=== PATIENT | male | born 1990 | race Caucasian/White ===

== ENCOUNTER 2025-02-11 08:04 | Emergency (ER) | payer OTHER ==
[~2025-02-11] VITALS: Ht 185.4 cm; Wt 133.0 kg
[2025-02-11] MEDS ORDERED: BRIXADI128 MG/0.3 SUB-Q (08:16)
[2025-02-11] MEDS ORDERED: VENTOLIN HFA18 GM INH (08:17)
[2025-02-11] MEDS ORDERED: OMEPRAZOLE40 MG PO (08:17)
[2025-02-11 08:30] LABS: BASOPHILS 0.3 % (0.2-1.2); EOSINOPHILS 1.5 % (0.8-7.0); LYMPHOCYTES 25.7 % (21.8-53.1); MCH 25.5 PG (25.7-32.2); MCHC 32.5 g/dL (32.3-36.5); MCV 78.4 fL (79.0-92.2); MONOCYTES 12.2 % (5.3-12.2); NEUTROPHILS 60.1 % (34.0-67.9); RBC 5.41 M/uL (4.63-6.08)
[2025-02-11] MEDS ORDERED: KETOROLAC TROMETHAMINE 30 MG/ML VIAL IV ONE (08:30)
[2025-02-11 08:47] LABS: ALT (SGPT) 21 U/L (14-59); AST (SGOT) 13 U/L (15-37); GLOMERULAR FILTRATION RATE,EST 113 mL/min (>60); PROTEIN, TOTAL 8.3 g/dL (6.4-8.2); UREA NITROGEN 12 mg/dL (7-18)
--- NOTE | 2025-02-16 18:54 | EKG ---
[facility] [address] [place] [address] Signed Normal sinus rhythm Inferior infarct , age undetermined Abnormal ECG No previous ECGs available Confirmed by Pooja Mayberry MD () on 02/16/2025 6:54:27 PM Electronically Signed By: POOJA MAYBERRY MD 02/16/25 185 PATIENT NAME: BENI LEE Electrocardiogram DATE OF : 86 PHYSICIAN: POOJA MAYBERRY MD REPORT #: [id number] REPORT IS CONFIDENTIAL AND NOT TO BE RELEASED WITHOUT AUTHORIZATION
== END 2025-02-11 09:52 | disposition home or self-care (01) ==
LOC: ED 08:04
PROVIDERS: Emergency Medicine
DX: R07.81 Pleurodynia (principal); I48.91 Unspecified atrial fibrillation; Z79.899 Other long term (current) drug therapy
CPT/HCPCS: 36415; 71045; 71260; 80053; 84484; 85025; 85379; 93005; 93010; 96374; 99285-25; J1885; Q9967